=== PATIENT | female | born 1960 | race Caucasian/White ===

== ENCOUNTER 2017-11-23 10:41 | Emergency (ER) | payer BC, OTHER ==
[2017-11-23] MEDS ORDERED: KETOROLAC 30 MG/ML INJ ONE (11:42)
[2017-11-23] MEDS ORDERED: NA CHLORIDE 0.9% 1,000 ML ONE (11:42)
[2017-11-23 11:51] LABS: Protime INR 1.07
[2017-11-23 12:03] LABS: ALT/SGPT 26 U/L (12-78); AST/SGOT 17 U/L (15-37); Albumin 3.7 g/dL (3.4-5.0); Alkaline Phosphatase 111 U/L (45-117); BUN Blood Urea Nitrogen 16 mg/dL (7-18); Bicarbonate 27 mmol/L (21-32); Bilirubin Direct 0.2 mg/dL (0-0.2); Bilirubin Total 0.7 mg/dL (0.2-1.0); CKMB Creatine Kinase MB < 1.0 ng/mL (0.3-3.6); Creatine Phosphokinase 112 U/L (26-192); Glucose Level 93 mg/dL (74-106); Magnesium 2.2 mg/dL (1.8-2.4); NT PRO-BNP 63 pg/mL (<125); Potassium 3.8 mmol/L (3.5-5.1); Protein, Total 7.8 g/dL (6.4-8.2); Sodium Level 139 mmol/L (136-145); Troponin (Emerg Dept Use Only) < 0.02 ng/mL (0.0-0.045)
[2017-11-23 12:03] LABS: Urine Blood 1+ (NEG); Urine Glucose NEGATIVE (NEG); Urine Protein NEGATIVE (NEG); Urine Specific Gravity 1.015 (1.005-1.030)
--- NOTE | 2017-11-23 12:09 | EKG ---
Test Date: 2017-11-23 Test Time: 11:14:27 Grommet Machine Operator: TANNER MEASUREMENT RESULTS: Intervals: Rate: 76 ND: 178 QRSD: 76 QT: 380 QTc: 427 Dovray: P: 64 ND: 178 QRS: 51 T: 64 INTERPRETIVE STATEMENTS: Normal sinus rhythm Normal ECG No previous ECG available for comparison Electronically Signed On 11-23-17 12:08:20 CDT by Simeon Hernandez
[2017-11-23 12:16] LABS: Absolute Lymphocytes (CBC) 1.3 K/uL (0.7-4.9); Absolute Monocytes 0.6 K/uL (0.1-1.3); Absolute Neutrophil 3.8 K/uL (1.8-8.0); Basophils % 0.6 % (0-1.3); Eosinophils % 1.2 % (0-4.4); Hematocrit 44.2 % (36.0-45.0); Lymphocytes % 22.7 % (15.3-44.8); MCH 31.7 pg (27.0-35.0); MCV 91.6 fL (80-100); MPV 8.8 fL (7.6-11.3); Monocytes % 10.1 % (3.3-12.3); RBC Red Blood Cell Count 4.82 M/uL (3.86-4.86)
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
[2017-11-23] MEDS ORDERED: HYDROCODONE/APAP 7.5/325 MG TAB ONE (14:21)
[2017-11-23] MEDS ORDERED: TRAMADOL HCL 50 MG TAB ONE (14:26)
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
--- NOTE | 2017-11-23 19:11 | EKG ---
Test Date: 2017-11-23 Test Time: 14:24:38 [employer] Repairer: TANNER MEASUREMENT RESULTS: Intervals: Rate: 69 CO: 204 QRSD: 76 QT: 402 QTc: 430 Exline: P: 71 CO: 204 QRS: 66 T: 72 INTERPRETIVE STATEMENTS: Normal sinus rhythm Normal ECG Compared to ECG 11/23/2017 11:14:27 No significant changes Electronically Signed On 11-23-17 19:09:57 CDT by Simeon Hernandez
== END 2017-11-23 15:45 | disposition home or self-care (01) ==
LOC: ER 10:41
DX: R07.89 Other chest pain (principal); V43.52XA Car driver injured in collision with other type car in traffic accident, initial encounter; E78.00 Pure hypercholesterolemia, unspecified
CPT/HCPCS: 36415; 71260; 80048; 80076; 81003; 82550; 82553; 83735; 83880; 84484; 85025; 85610; 85730; 93005; 96361; 96374; 99285; J7030; Q9967

== ENCOUNTER 2018-12-25 11:34 | Emergency (ER) | payer OTHER ==
[2018-12-25] MEDS ORDERED: NA CHLORIDE 0.9% 1,000 ML ONE (12:12)
[2018-12-25] MEDS ORDERED: MORPHINE 4 MG/ML SYR ONE (12:12)
[2018-12-25] MEDS ORDERED: ONDANSETRON 4 MG/2 ML VIAL ONE (12:12)
[2018-12-25 12:30] LABS: Absolute Lymphocytes (CBC) 0.5 K/uL (0.7-4.9); Basophils % 0.2 % (0-1.3); Lymphocytes % 3.8 % (15.3-44.8); MPV 9.2 fL (7.6-11.3); RBC Red Blood Cell Count 4.89 M/uL (3.86-4.86)
[2018-12-25] MEDS ORDERED: FENTANYL CITR 100 MCG/2 ML ONE (12:46)
[2018-12-25 13:21] LABS: ALT/SGPT 45 U/L (12-78); AST/SGOT 28 U/L (15-37); Albumin 3.4 g/dL (3.4-5.0); Alkaline Phosphatase 83 U/L (45-117); BUN Blood Urea Nitrogen 13 mg/dL (7-18); Bicarbonate 27 mmol/L (21-32); Bilirubin Direct 0.2 mg/dL (0-0.2); Bilirubin Total 0.7 mg/dL (0.2-1.0); Glucose Level 125 mg/dL (74-106); Lipase 47 U/L (73-393); Protein, Total 6.7 g/dL (6.4-8.2); Sodium Level 141 mmol/L (136-145); Troponin (Emerg Dept Use Only) < 0.02 ng/mL (0.0-0.045)
--- NOTE | 2018-12-25 13:58 | RAD REPORT ---
EXAM DESCRIPTION: CT - Abdomen Pelvis W Contrast - 12/25/2018 1:37 pm CLINICAL HISTORY: right lower abdominal pain, diabetes COMPARISON: None. TECHNIQUE: Biphasic, helical CT imaging of the abdomen and pelvis was performed following 100 ml non -ionic IV contrast. No oral contrast administered. All CT scans are performed using dose optimization technique as appropriate and may include automated exposure control or mA/KV adjustment according to patient size. FINDINGS: No suspicious findings in the lung bases. Diffuse fatty infiltration pattern is seen in the liver. No focal liver abnormality. Spleen and pancr eas show no suspicious findings. Gallbladder and biliary tree are also without suspicious finding. Symmetric renal function is seen with no hydronephrosis or suspicious renal mass. No pyelonephritis o r acute parenchymal process. No bladder abnormalities. No adrenal abnormalities. No gastric dilatation or gastric wall thickening. There is retained fluid within the stomach. No acut e small bowel finding. Terminal ileum is normal in appearance. Appendix is not clearly defined. Appen dicitis is not suspected. No active GI process seen. No free air, free fluid or inflammatory stranding. No hernia, mass or bulky lymphadenopathy. No suspicious bony findings. IMPRESSION: Contrast enhanced CT abdomen and pelvis showing no emergent finding. Patient does have diffuse fatty infiltration of the liver.
[2018-12-25 14:21] LABS: Blood Morphology Comment NOT SEEN (NOT SEEN); Platelet Estimate ADEQ; Urine White Blood Cell Casts OK
[2018-12-25 14:33] LABS: Urine Blood NEGATIVE (NEG); Urine Glucose NEGATIVE (NEG); Urine Protein NEGATIVE (NEG); Urine Specific Gravity 1.015 (1.005-1.030); Urine pH 8.5 (5.0-7.0)
[2018-12-25] MEDS ORDERED: DIAZEPAM 10 MG/2 ML INJ SYRINGE ONE (15:12)
--- NOTE | 2018-12-25 16:33 | ER ---
Nurse's Notes [facility] Name: Mavis Jones Age: 58 yrs Sex: Female : 1960 Arrival Date: 12/25/2018 Time: 11:35 Bed 20 Private MD: Dawit Whatley B Diagnosis: Lower abdominal pain, unspecified;Low back pain Presentation: 12/25 11:43 Presenting complaint: Patient states: GEN ABDOMINAL PAIN SINCE LAST PM. Transition of bp care: patient was not received from another setting of care. Onset of symptoms is unknown. Risk Assessment: Do you want to hurt yourself or someone else? Patient reports no desire to harm self or others. Initial Sepsis Screen: Does the patient meet any 2 criteria? HR > 90 bpm. No. Patient's initial sepsis screen is negative. Does the patient have a suspected source of infection? No. Patient's initial sepsis screen is negative. Care prior to arrival: None. 11:43 Method Of Arrival: Wheelchair bp 11:43 Acuity: SASHA 3 bp Historical: - Allergies: 11:45 No Known Allergies; bp - Home Meds: 11:45 Trulicity subcutaneous [Active]; Lovastatin Oral [Active]; etodolac 500 mg Oral tab 1 bp tab 2 times per day [Active]; - PMHx: 11:45 High Cholesterol; Diabetes - NIDDM; bp - Immunization history:: Adult Immunizations up to date. - Social history:: Smoking status: Patient/guardian denies using tobacco. - Ebola Screening: : No symptoms or risks identified at this time. Screenin:44 Abuse screen: Denies threats or abuse. Denies injuries from another. Nutritional sg screening: No deficits noted. Tuberculosis screening: No symptoms or risk factors identified. Never had TB. Fall Risk None identified. Assessment: 11:50 General: Appears uncomfortable, ill, well groomed, well developed, well nourished, sg Behavior is cooperative, agitated, restless. Pain: Complains of pain in left mid back and right mid back and right lower quadrant Quality of pain is described as aching, crampy. Neuro: Level of Consciousness is awake, alert, obeys commands, Oriented to person, place, time, Road Machine Runner are equal bilaterally Moves all extremities. Speech is normal, Facial symmetry appears normal. Cardiovascular: Capillary refill is brisk in bilateral fingers Patient's skin is warm and dry. Chest pain is denied. Respiratory: Airway is patent Respiratory effort is even, unlabored, Respiratory pattern is regular, symmetrical. GI: Abdomen is round non-distended, Bowel sounds present X 4 quads. Abd is soft X 4 quads Abdomen is tender to palpation in right upper quadrant and right lower quadrant. : Reports pain in bilateral flank(s). EENT: No signs and/or symptoms were reported regarding the EENT system. Derm: Skin is pink, warm \T\ dry. Musculoskeletal: Circulation, motion, and sensation intact. Range of motion: intact in all extremities. 11:56 Reassessment: Patient appears in no apparent distress at this time. sg 13:40 Reassessment: Patient appears in no apparent distress at this time. Patient and/or sg family updated on plan of care and expected duration. Pain level reassessed. Patient is alert, oriented x 3, equal unlabored respirations, skin warm/dry/pink. pain a 5/10 at this time. 13:55 Reassessment: Patient appears in no apparent distress at this time. Patient and/or sg family updated on plan of care and expected duration. Pain level reassessed. pt complaining of pain, appears quiet and still, reports needing to urinate, pt assisted to bedside commode, ambulatory with standby assist, pt assisted back to bed at this time. 14:34 Reassessment: Patient appears in no apparent distress at this time. Patient and/or sg family updated on plan of care and expected duration. Pain level reassessed. Patient is alert, oriented x 3, equal unlabored respirations, skin warm/dry/pink. pt family remains at bedside, Alejandra at bedside evaluating patient and updating on results and POC Patient states symptoms have not improved. 15:00 Reassessment: Patient appears in no apparent distress at this time. Patient and/or sg family updated on plan of care and expected duration. Pain level reassessed. Patient is alert, oriented x 3, equal unlabored respirations, skin warm/dry/pink. pt family at bedside at this time, Alejandra PA to re evaluate pt, to evaluate pt, pt to be administered IVP 2 mg Valium. Vital Signs: 11:45 BP 118 / 64; Pulse 115; Resp 20; Temp 99.5; Pulse Ox 97% ; Weight 77.11 kg; bp 12:44 BP 124 / 62; Pulse 100 MON; Resp 19; Pulse Ox 95% on R/A; Pain 8/10; sg 13:30 BP 126 / 66; Pulse 92; Resp 17; Pulse Ox 94% on R/A; Pain 5/10; sg 15:30 BP 130 / 72; Pulse 76; Resp 16; Temp 98.8; Pulse Ox 98% on R/A; Pain 5/10; sg 17:00 BP 122 / 66; Pulse 72; Resp 17; Pulse Ox 98% on R/A; sg ED Course: 11:35 Patient arrived in ED. as 11:36 Dawit Whatley MD is Private Physician. as 11:44 Triage completed. bp 11:45 Arm band placed on. bp 11:46 [facility]ir Lucero [facility]. jmm 11:46 Maribell Claire MD is Attending Physician. jmm 11:49 Jeb Ortiz RN is Primary Nurse. sg 11:55 Patient has correct armband on for positive identification. Placed in gown. Bed in low sg position. Call light in reach. Side rails up X 1. Pulse ox on. NIBP on. Warm blanket given. Pillow given. Head of bed elevated. 12:08 Initial lab(s) drawn, by wv, sent to lab. Inserted saline lock: 20 gauge in right dh3 antecubital area, using aseptic technique. Blood collected. 12:11 Inserted saline lock: 20 gauge in left antecubital area, using aseptic technique. dh3 13:10 EKG done, by human performance technologist. reviewed by Jasbir CHICAS. at1 13:37 CT Abd/Pelvis - IV Contrast Only In Process Unspecified. EDMS 13:40 Patient moved back from CT. sg 13:59 Assisted to bedside commode. sg 17:00 No provider procedures requiring assistance completed. IV discontinued, intact, sg bleeding controlled, No redness/swelling at site. Pressure dressing applied. Administered Medications: 12:18 Drug: Zofran 4 mg Route: IVP; Site: left antecubital; sg 12:20 Drug: morphine 4 mg {Note: RASS OF 2.} Route: IVP; Site: left antecubital; sg 12:44 Follow up: Response: No adverse reaction; Pain is unchanged, physician notified; RASS: sg Restless (+1) 12:21 Drug: NS 0.9% 1000 ml Route: IV; Rate: 1 bolus; Site: left antecubital; sg 12:50 Drug: fentaNYL (PF) 25 mcg {Note: RASS of +1.} Route: IVP; Site: left antecubital; sg 13:50 Follow up: Response: No adverse reaction; Pain is unchanged, physician notified; RASS: sg Drowsy (-1) 15:17 Drug: Valium 2 mg Route: IVP; Site: left antecubital; sg 16:01 Follow up: Response: No adverse reaction sg Outcome: 16:32 Discharge ordered by . manuel 17:00 Discharged to home ambulatory, with family. 17:00 Condition: good 17:00 Discharge instructions given to patient, family, Instructed on discharge instructions, follow up and referral plans. medication usage, safety practices, Demonstrated understanding of instructions, follow-up care, medications, Prescriptions given X 1. 17:01 Patient left the ED. sg Signatures: Dispatcher [employer] EDMS Jeb Ortiz, RN RN sg Jasbir Lucero PA PA Tanvi Padron Amanda, mailing specialist EKG [facility]1 Francesca Valencia 3 Marcos Walton, RN RN bp
--- NOTE | 2018-12-25 16:33 | EDPHYS ---
Physician Documentation [facility] Name: Mavis Jones Age: 58 yrs Sex: Female : 1960 Arrival Date: 12/25/2018 Time: 11:35 Bed 20 Private MD: Dawit Whatley B ED Physician Maribell Claire HPI: 12/25 12:13 This 58 yrs old Female presents to ER via Wheelchair with complaints of jmm Abdominal Pain. 12:13 The patient presents with abdominal pain in the right upper quadrant, right lower jmm quadrant. Onset: The symptoms/episode began/occurred gradually, last night. The symptoms do not radiate. Associated signs and symptoms: Pertinent positives: nausea. The symptoms are described as achy, sharp. Modifying factors: The symptoms are alleviated by nothing, the symptoms are aggravated by. The patient has experienced a previous episode. This is a 58 year old female with a history of HLP, DM that presents to the ED with complaints of right sided abdominal pain beginning last night after taking an antiinflammatory. Denies vomiting, denies diarrhea. Pain is at the right lower lumbar region and radiates to the right lower quadrant of the abdomen. . Historical: - Allergies: 11:45 No Known Allergies; bp - Home Meds: 11:45 Trulicity subcutaneous [Active]; Lovastatin Oral [Active]; etodolac 500 mg Oral tab 1 bp tab 2 times per day [Active]; - PMHx: 11:45 High Cholesterol; Diabetes - NIDDM; bp - Immunization history:: Adult Immunizations up to date. - Social history:: Smoking status: Patient/guardian denies using tobacco. - Ebola Screening: : No symptoms or risks identified at this time. ROS: 12:13 Constitutional: Negative for fever, chills, and weight loss, Cardiovascular: Negative jmm for chest pain, palpitations, and edema, Respiratory: Negative for shortness of breath, cough, wheezing, and pleuritic chest pain. 12:13 Back: Negative for injury and pain, MS/Extremity: Negative for injury and deformity, Skin: Negative for injury, rash, and discoloration. 12:13 Abdomen/GI: Positive for abdominal pain. 12:13 All other systems are negative. Exam: 12:13 Head/Face: atraumatic. Eyes: EOMI, no conjunctival erythema appreciated ENT: Moist [facility] Mucus Membranes Neck: Trachea midline, Supple Chest/axilla: Normal chest wall appearance and motion. Cardiovascular: Regular rate and rhythm. No edema appreciated Respiratory: Normal respirations, no respiratory distress appreciated 12:13 Constitutional: The patient appears alert, awake, anxious, uncomfortable. 12:13 Abdomen/GI: Inspection: abdomen appears normal, Bowel sounds: normal, Palpation: soft, moderate abdominal tenderness, in the right lower quadrant. 12:13 Musculoskeletal/extremity: ROM: intact in all extremities. 12:13 Skin: Appearance: Color: normal in color, Temperature: 12:13 Neuro: Orientation: is normal, Mentation: is normal, Memory: is normal. 12:13 Psych: Behavior/mood is pleasant, cooperative. 16:30 Back: right lower lumbar tenderness on palpation, right gluteal pain on palpation. [facility] Vital Signs: 11:45 BP 118 / 64; Pulse 115; Resp 20; Temp 99.5; Pulse Ox 97% ; Weight 77.11 kg; bp 12:44 BP 124 / 62; Pulse 100 MON; Resp 19; Pulse Ox 95% on R/A; Pain 8/10; sg 13:30 BP 126 / 66; Pulse 92; Resp 17; Pulse Ox 94% on R/A; Pain 5/10; sg 15:30 BP 130 / 72; Pulse 76; Resp 16; Temp 98.8; Pulse Ox 98% on R/A; Pain 5/10; sg 17:00 BP 122 / 66; Pulse 72; Resp 17; Pulse Ox 98% on R/A; sg MDM: 11:48 Patient medically screened. [facility] 16:30 Data reviewed: vital signs, nurses notes. Counseling: I had a detailed discussion with [facility] the patient and/or guardian regarding: the historical points, exam findings, and any diagnostic results supporting the discharge/admit diagnosis, lab results, radiology results, the need for outpatient follow up, to return to the emergency department if symptoms worsen or persist or if there are any questions or concerns that arise at home. ED course: Decreased pain in the ED. Patient is given early appendicitis return precautions. Patient is otherwise advised to return to the ED if symptoms worsen. Patient understood and agrees with the plan of care. . 12/25 12:00 Order name: Basic Metabolic Panel; Complete Time: 13:25 [facility] 12/25 12:00 Order name: CBC with Diff; Complete Time: 14:22 [facility] 12/25 12:00 Order name: Creatinine for Radiology; Complete Time: 13:25 [facility] 12/25 12:00 Order name: Hepatic Function; Complete Time: 13:25 [facility] 12/25 12:00 Order name: Lipase; Complete Time: 13:25 [facility] 12/25 12:00 Order name: Troponin (emerg Dept Use Only); Complete Time: 13:25 [facility] 12/25 12:00 Order name: CT Abd/Pelvis - IV Contrast Only; Complete Time: 14:02 [facility] 12/25 14:10 Order name: Urine Dipstick--Ancillary (enter results); Complete Time: 14:38 12/25 14:21 Order name: CBC Smear Scan; Complete Time: 14:22 [facility] 12/25 12:00 Order name: IV Saline Lock; Complete Time: 12:17 [facility] 12/25 12:00 Order name: Labs collected and sent; Complete Time: 12:17 [facility] 12/25 12:00 Order name: EKG - Nurse/Tech; Complete Time: 13:50 [facility] 12/25 12:29 Order name: Labs - recollect needed: BMP, RAD creat, troponin; Complete Time: 12:43 ss Administered Medications: 12:18 Drug: Zofran 4 mg Route: IVP; Site: left antecubital; sg 12:20 Drug: morphine 4 mg {Note: RASS OF 2.} Route: IVP; Site: left antecubital; sg 12:44 Follow up: Response: No adverse reaction; Pain is unchanged, physician notified; RASS: sg Restless (+1) 12:21 Drug: NS 0.9% 1000 ml Route: IV; Rate: 1 bolus; Site: left antecubital; sg 12:50 Drug: fentaNYL (PF) 25 mcg {Note: RASS of +1.} Route: IVP; Site: left antecubital; sg 13:50 Follow up: Response: No adverse reaction; Pain is unchanged, physician notified; RASS: sg Drowsy (-1) 15:17 Drug: Valium 2 mg Route: IVP; Site: left antecubital; sg 16:01 Follow up: Response: No adverse reaction sg Disposition: 20:01 Co-signature as Attending Physician, Maribell Claire MD. ma2 Disposition: 12/25/18 16:32 Discharged to Home. Impression: Lower abdominal pain, unspecified, Low back pain. - Condition is Stable. - Discharge Instructions: Abdominal Pain, Adult, Back Pain, Adult. - Prescriptions for Zanaflex 4 mg Oral Tablet - take 1 tablet by ORAL route every 8 hours As needed; 20 tablet. - Medication Reconciliation Form, Thank You Letter, Antibiotic Education, Prescription Opioid Use form. - Follow up: Private Physician; When: 2 - 3 days; Reason: Recheck today's complaints, Continuance of care, Re-evaluation by your physician. Signatures: Dispatcher [employer] EDMS Jeb Ortiz RN RN sg Anderson, Corey, MD MD cha Mickail, Joel, PA PA [facility] Nelsy Bruno RN RN ss Marcos Walton RN RN bp Alzahri, Mohammad, MD MD ma2 Corrections: (The following items were deleted from the chart) 16:12 12:13 This is a 58 year old female with a history of HLP, DM that presents to the ED [facility] with complaints of right sided abdominal pain beginning last night after taking an antiinflammatory. Denies diarrhea. . [facility] 17:01 16:32 12/25/2018 16:32 Discharged to Home. Impression: Lower abdominal pain, sg unspecified; Low back pain. Condition is Stable. Forms are Medication Reconciliation Form, Thank You Letter, Antibiotic Education, Prescription Opioid Use. Follow up: Private Physician; When: 2 - 3 days; Reason: Recheck today's complaints, Continuance of care, Re-evaluation by your physician. [facility]
[2018-12-25 17:18] VITALS: TEMP 99.5
[2018-12-25 17:21] VITALS: BP 126/66; O2SAT 94
--- NOTE | 2018-12-26 05:33 | EKG ---
Test Date: 2018-12-25 Test Time: 13:06:27 American Sign Language Interpreter: SARAH MEASUREMENT RESULTS: Intervals: Rate: 92 MS: 170 QRSD: 76 QT: 372 QTc: 460 [place]: P: 64 MS: 170 QRS: 58 T: 63 INTERPRETIVE STATEMENTS: Normal sinus rhythm Normal ECG Compared to ECG 11/23/2017 14:24:38 No significant changes Electronically Signed On 12-26-18 05:32:17 CDT by Sheldon Galvez
== END 2018-12-25 17:01 | disposition home or self-care (01) ==
LOC: ER 11:34
DX: M54.5 Low back pain (principal); E11.9 Type 2 diabetes mellitus without complications; E78.00 Pure hypercholesterolemia, unspecified; Z79.4 Long term (current) use of insulin
CPT/HCPCS: 93005; 85025; 80048; 36415; 80076; 81003; 84484; 83690; 74177; 96375; 96374; 99285; Q9967; J3360; J3010; J7030; J2405